=== PATIENT | male | born 1985 | race Two or more races ===

== ENCOUNTER 2017-03-25 15:32 | Emergency (ER) | payer BC ==
[~2017-03-25] VITALS: Ht 180.3 cm; Wt 97.9 kg
[~2017-03-25 15:32] MED LIST: BENADRYL50 MG PO; BUPROPION XL150 MG PO; MEDROL DOSEPAK4 MG PO; VYVANSE70 MG PO
[2017-03-25 17:11] LABS: CHLORIDE 105 mEq/L (99-109); POTASSIUM 3.8 mEq/L (3.7-5.4); SODIUM 140 mEq/L (136-147)
[2017-03-25 17:13] LABS: GLUCOSE 103 mg/dL (70-99)
[2017-03-25 17:15] LABS: ANION GAP 11 MEQ/L (2-14)
[2017-03-25 17:17] LABS: GFR ESTIMATE (CALCULATED) > 59 mL/min/; TROP-I INTERPRETATION NEGATIVE; TROPONIN-I < 0.01 ng/mL (0.0-0.30)
[2017-03-25 17:18] LABS: HEMATOCRIT 50.2 % (38.0-50.0); MCHC 33.9 G/DL (30.0-36.0); MCV 88.5 FL (86-99); RBC DIS.WIDTH-CV 11.9 % (11.8-14.6); RBC DIS.WIDTH-SD 38.3 % (39-53); RED BLOOD COUNT 5.67 M/uL (4.00-5.50); UREA NITROGEN (BUN) 13 mg/dL (9-23); WHITE BLOOD COUNT 7.2 K/uL (4.1-10.2)
[2017-03-25 18:05] LABS: MEAN PLAT.VOLUME 12.2 uM^3 (9.0-12.4); PLAT.SUFFICIENCY ADEQUATE; PLATELET COUNT 228 K/uL (156-360)
[2017-03-25 19:46] VITALS: BP 152/92
== END 2017-03-25 19:47 | disposition home or self-care (01) ==
LOC: EME 15:32
DX: R07.9 Chest pain, unspecified (principal); R06.02 Shortness of breath
CPT/HCPCS: 71020; 80048; 84484; 85027; 93005; 99281; 99284